=== PATIENT | male | born 1975 | race Caucasian/White ===

== ENCOUNTER 2017-11-29 03:06 | Emergency (ER) | payer OTHER ==
[2017-11-29 03:12] VITALS: RESP 16
--- NOTE | 2017-11-29 03:53 | ED ---
Chest Pain HPI - General Chief Complaint: Chest Pain Stated Complaint: Chest and arm pain Time Seen by Provider: 11/29/17 03:21 Source: patient Mode of arrival: ambulatory Limitations: no limitations - History of Present Illness Initial Comments: Dao is a previously healthy 41-year-old male who presents the ED today for evaluation of chest tightness and left forearm pain. Patient reports that for the past couple of weeks he has noticed some intermittent squeezing like pain in his chest which comes and goes. He notices it more frequently when he is at work or at the gym when he is lifting weights. He reports that when he goes to the gym he is able to run on the elliptical or treadmill for 30 minutes without any chest pain, palpitations, tightness, shortness of breath or diaphoresis. However when he is lifting weights he notices that he feels some tightness or pulling across his chest wall. Patient reports that for the past couple of weeks he is also noticed some pain in his left forearm while he is working. 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 He doesn't notice any pain in his hand or wrist. The pain seems to be in the muscles of his forearm. He is right arm dominant and the pain is in his left forearm. The pain doesn't seem to occur to much at home. The pain occurs occasionally with weight lifting. Again the pain does not occur with cardio type exercises. The patient reports that this evening he got to work at 11 PM and began feeling the left forearm pain as well as the pulling sensation in his left shoulder and left chest. During his lunch hour he googled his symptoms and found out that chest pain with left arm pain could be sign of heart attack which prompted him to come to the ER for evaluation. Patient is a nonsmoker, no history of hypertension or diabetes. He has been diagnosed with high cholesterol and prescribe statins by his primary care physician last month but admits that he has not been taking these see does not like the way they make him feel. He is physically active and goes to the gym 4 days a week, participates in both cardio and weight training exercises. He has no family history of early cardiac disease and reports only known cardiac disease in his family is his grandmother having heart disease in her older age. - Related Data Previous Rx's Medication Instructions Recorded diphenhydrAMINE [Benadryl] 50 mg PO QID PRN #30 capsule 09/16/13 predniSONE 20 mg PO DIRECTED #15 tab 09/16/13 Allergies Allergy/AdvReac Type Severity Reaction Status Date / Time No Known Allergies Allergy Verified 11/29/17 03:12 Review of Systems ROS Statement: Those systems with pertinent positive or pertinent negative responses have been documented in the HPI. ROS Other: All systems not noted in ROS Statement are negative. EKG Findings - EKG Comments: EKG Findings:: EKG obtained at 3:22 AM, rate is 65, rhythm is sinus, normal axis , normal intervals, KS 178, QRS 88, QTC 416. no acute ST elevations or depressions. No evidence of acute ischemia or infarction Past Medical History Additional Past Medical History / Comment(s): testicular ca. History of Any Multi-Drug Resistant Organisms: None Reported Additional Past Surgical History / Comment(s): right testicle removed. Past Psychological History: No Psychological Hx Reported Smoking Status: Never smoker Past Alcohol Use History: None Reported Past Drug Use History: None Reported General Exam - General Exam Comments Initial Comments: GENERAL: Patient is well-developed and well-nourished. Patient is nontoxic and well- hydrated and is in no distress. HENT: Normocephalic, Atraumatic. Neck is soft and supple. No significant lymphadenopathy is noted. Oropharynx is clear. Moist mucous membranes. Neck has full range of motion without eliciting any pain. EYES: The sclera were anicteric and conjunctiva were pink and moist. Extraocular movements were intact and pupils were equal round and reactive to light. Eyelids were unremarkable. PULMONARY: Unlabored respirations. Good breath sounds bilaterally. No audible rales rhonchi or wheezing was noted. CARDIOVASCULAR: There is a regular rate and rhythm without any murmurs gallops or rubs. ABDOMEN: Soft and nontender with normal bowel sounds. SKIN: Skin is clear with no lesions or rashes and otherwise unremarkable. NEUROLOGIC: Patient is alert and oriented x3. Cranial nerves II through XII are grossly intact. Motor and sensory are also intact. Normal speech, volume and content. Symmetrical smile. MUSCULOSKELETAL: Normal extremities with adequate strength and full range of motion. No lower extremity swelling or edema. No calf tenderness. LYMPHATICS: No significant lymphadenopathy is noted PSYCHIATRIC: Normal psychiatric evaluation. Limitations: no limitations Limitations: no limitations Course Vital Signs 11/29/17 11/29/17 11/29/17 03:08 04:42 05:25 Temperature 98.4 F 97.8 F Pulse Rate 63 68 64 Respiratory 16 16 16 Rate Blood Pressure 143/87 129/77 125/68 O2 Sat by Pulse 98 97 100 Oximetry Chest Pain MDM - [facility] Patient was seen and evaluated, vital signs were reviewed, history was obtained from the patient EKG nonischemic Heart score 0 Workup ordered Troponin and d-dimer negative Creatinine kinase mildly elevated consistent with patient's history of strenuous workouts at the gym Based on the patient's history physical exam EKG, chest x-ray and labs do not feel that his discomfort is cardiac in nature. Results were discussed with the patient. Pertaining to care were answered the best of my ability the patient was discharged home. Discussed with the patient the importance of oral hydration, NSAIDs for discomfort, resting from any heavy lifting for the next week. Follow up with primary care. Return parameters discussed with the patient was discharged home in stable condition. Disposition Clinical Impression: Atypical chest pain, Musculoskeletal pain Disposition: HOME SELF-CARE Condition: Good Instructions: Chest Pain (ED) Is patient prescribed a controlled substance at d/c from ED?: No Referrals: Lashawn Galan MD [Primary Care Provider] - 1-2 days
--- NOTE | 2017-11-29 04:05 | XR ---
EXAMINATION TYPE: XR chest 2V DATE OF EXAM: 11/29/2017 COMPARISON: NONE HISTORY: Chest pain TECHNIQUE: Frontal and lateral views of the chest are obtained. FINDINGS: Heart and mediastinum are normal. Lungs are clear. Diaphragm is normal. Bony thorax appear s normal. There are chest leads. IMPRESSION: Normal chest
[2017-11-29 04:11] LABS: Basophils % (A) 1 %; Eosinophils # (A) 0.2 k/uL (0-0.7); Eosinophils % (A) 4 %; HCT 44.7 % (39.0-53.0); HGB 14.8 gm/dL (13.0-17.5); Lymphocytes # (A) 2.3 k/uL (1.0-4.8); Lymphocytes % (A) 41 %; MCH 29.9 pg (25.0-35.0); MCHC 33.1 g/dL (31.0-37.0); MCV 90.3 fL (80.0-100.0); Monocytes # (A) 0.3 k/uL (0-1.0); Monocytes % (A) 6 %; Neutrophils # (A) 2.5 k/uL (1.3-7.7); Neutrophils % (A) 46 %; Platelet Count 254 k/uL (150-450); RBC 4.95 m/uL (4.30-5.90); RDW 12.7 % (11.5-15.5); WBC 5.5 k/uL (3.8-10.6)
[2017-11-29 04:19] LABS: ALT 49 U/L (21-72); AST 46 U/L (17-59); Alkaline Phosphatase 54 U/L (38-126); Anion Gap 13 mmol/L; Blood Urea Nitrogen 20 mg/dL (9-20); Carbon Dioxide 23 mmol/L (22-30); Chloride 103 mmol/L (98-107); Creatine Kinase 338 U/L (55-170); Glucose 96 mg/dL (74-99); Sodium 139 mmol/L (137-145); Total Bilirubin 0.5 mg/dL (0.2-1.3)
[2017-11-29 04:27] LABS: D-Dimer <0.17 mg/L FEU (<0.60); Partial Thromboplastin Time 25.1 sec (22.0-30.0); Prothrombin Time 10.1 sec (9.0-12.0)
[2017-11-29 05:27] VITALS: BP 125/68; PULSE 64; TEMP 97.8
== END 2017-11-29 05:25 | disposition home or self-care (01) ==
LOC: EC 03:06
DX: R07.89 Other chest pain (principal); M79.18 Myalgia, other site
CPT/HCPCS: 36415; 71046; 80053; 82550; 83735; 84484; 85025; 85379; 85610; 85730; 93005; 99285

== ENCOUNTER 2022-05-18 09:00 | Day surgery (SDC) | payer BC, OTHER ==
[2022-05-14 16:17] VITALS: BMI 34.4
[~2022-05-18 09:00] MED LIST: LACTATED RINGERS 1,000 ML IV SCH; LIDOCAINE 1% (10MG/ML) FOR IV START INTRADERMA PRN
[2022-05-18 09:28] VITALS: TEMP 97.7
[2022-05-18] MEDS ORDERED: PROPOFOL 10 MG/ML 20 ML VIAL IV ONE (09:53)
--- NOTE | 2022-05-18 10:03 | P.GSHP ---
History of Present Illness H&P Date: 05/18/22 Chief Complaint: Colon cancer screening 46-year-old male here today for colonoscopy. He has not had one previously. No family history of colon cancer. No bowel complaints. 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 Past Anesthesia/Blood Transfusion Reactions: No Reported Reaction Additional Past Anesthesia/Blood Transfusion Reaction / Comment(s): no hx blood transfusion Smoking Status: Never smoker - Past Family History Mother Family Medical History: Cancer Additional Family Medical History / Comment(s): breast Medications and Allergies Home Medications Medication Instructions Recorded Confirmed Type Atorvastatin [Lipitor] 5 mg PO DAILY 05/14/22 05/18/22 History Allergies Allergy/AdvReac Type Severity Reaction Status Date / Time No Known Allergies Allergy Verified 05/18/22 09:21 Surgical - Exam Vital Signs Temp Pulse Resp BP Pulse Ox 97.7 F 60 18 129/74 97 05/18/22 09:26 05/18/22 09:26 05/18/22 09:26 05/18/22 09:26 05/18/22 09:26 Physical exam: General: Well-developed, well-nourished HEENT: Normocephalic, sclerae nonicteric Abdomen: Nontender, nondistended Extremities: No edema Neuro: Alert and oriented Assessment and Plan (1) Colon cancer screening Narrative/Plan: Will proceed with colonoscopy at this time. Current Visit: Yes Status: Acute Code(s): Z12.11 - ENCOUNTER FOR SCREENING FOR MALIGNANT NEOPLASM OF COLON SNOMED Code(s): 758502666
--- NOTE | 2022-05-18 10:11 | P.PCN ---
Date of Procedure: 05/18/22 Procedure(s) Performed: PREOPERATIVE DIAGNOSIS: Colon cancer screening POSTOPERATIVE DIAGNOSIS: Normal exam PROCEDURE: Colonoscopy ANESTHESIA: MAC SURGEON: Gordon Littlejohn M.D. SPECIMENS: None ENDOSCOPIC PROCEDURE: The patient was placed on the endoscopy table in the left decubitus position. The Olympus colonoscope was inserted into the anus and passed under direct visualization to the base of the cecum. The appendiceal orifice was visualized. From that point the scope was slowly withdrawn inspecti ng all surfaces carefully. There were no neoplastic inflammatory or polypoid lesions throughout the cecum, ascending, transverse, descending, sigmoid and rectum. There was no visible diverticulosis noted. Digital rectal examination was normal. The patient was taken to the recovery room in stable condition per anesthesia guidelines. RECOMMENDATIONS: Resume diet. Repeat colonoscopy in 10 years.
[2022-05-18 10:21] VITALS: BP 108/70
[2022-05-18 10:47] VITALS: PULSE 50; RESP 20
== END 2022-05-18 10:56 ==
LOC: ORWHC2ENDO 09:00
PROVIDERS: ATTEND Surgery
DX: Z12.11 Encounter for screening for malignant neoplasm of colon (principal); Z85.47 Personal history of malignant neoplasm of testis; Z90.79 Acquired absence of other genital organ(s); Z80.3 Family history of malignant neoplasm of breast; Z79.899 Other long term (current) drug therapy
CPT/HCPCS: 45378; J2704